=== PATIENT | female | born 1930 | race Caucasian/White ===

== ENCOUNTER 2018-09-19 18:15 | Inpatient (IN) | payer MEDICARE, BC ==
[~2018-09-19] VITALS: Ht 152.4 cm; Wt 89.6 kg
[~2018-09-19 18:15] MED LIST: BETIMOL0.5 % OU; BISOPRL/HCT1 PO; LASIX 40 MG40 MG/TAB PO; LISINOPRIL10 MG PO; XALATAN0.005 % OU; XARELTO20 MG PO
--- NOTE | 2018-09-19 18:15 | NUR ---
PT TO ROOM 9 VIA EMS FROM [facility]. PT LIVES AT HOME W/DAUGHTER,.
--- NOTE | 2018-09-19 18:30 | NUR ---
PT REMAINS STABLE, NEB TX IN PROGRESS, PT TOLERATES WELL. PLAN OF CARE DISCUSSED WITH PT AND FAMILY.
[2018-09-19 18:39] LABS: IMMATURE GRANULOCYTES 0.4 % (0.0-5.0); MEAN CELL VOLUME 88.8 fL CALC (80.0-100.0); MEAN CORPUSCULAR HGB 28.4 pG CALC (26.0-32.0); MEAN CORPUSCULAR HGB CONC 31.9 g/L CALC (32.0-36.0); NEUT# 3.4 thou/uL (2.00-7.15); RED BLOOD COUNT 5.29 mill/uL (4.20-5.60); RED CELL DISTRI WIDTH 14.3 % (11.5-15.5)
--- NOTE | 2018-09-19 18:45 | NUR ---
PT RESTING WITH FAMILY AT BEDSIDE, DENIES ANY CHANGE IN STATUS
--- NOTE | 2018-09-19 18:49 | NUR ---
URINE OBTAINED, SENT TO LAB.
[2018-09-19 18:53] LABS: ALBUMIN 4.2 g/dL (3.2-5.0); ALKALINE PHOSPHATASE 148 u/l (38-126); ANION GAP 13 (6-22 (CALC)); BILIRUBIN, TOTAL 1.1 mg/dL (0.0-1.4); BUN 10 mg/dL (8-23); BUN/CREATININE RATIO 17 (12-20 (CALC)); CARBON DIOXIDE 30 mmol/l (22-30); CHLORIDE 98 mmol/l (95-108); CREATININE 0.6 mg/dL (0.5-1.0); GFR > 60 ML/MIN (>=60 (CALC)); GFR FOR AFR.AMER. > 60 ML/MIN (>=60 (CALC)); POTASSIUM 3.9 mmol/l (3.5-5.1); SGOT/AST 32 u/l (9-36); SODIUM 137 mmol/l (137-146); TOTAL PROTEIN 7.9 g/dL (6.3-8.2)
[2018-09-19 19:06] LABS: MYOGLOBIN 36 ng/mL (0 - 62)
--- NOTE | 2018-09-19 19:15 | NUR ---
PT REMAINS ON WELT BEATER, PT IMPROVING. DENIES ANY NEEDS AT THIS TIME
--- NOTE | 2018-09-19 19:35 | NUR ---
MD AT BEDSIDE, PT REMAINS STABLE. DENIES ANY CHANGE IN STATUS
--- NOTE | 2018-09-19 20:00 | NUR ---
FAMILY AT BEDSIDE, PT REMAINS STABLE, DENIES ANY CHANGES IN STATUS
--- NOTE | 2018-09-19 20:16 | NUR ---
EXTERNAL FEMALE URINE CATH APPLIED.... PT CAN STAND BUT SHE IS SHORT AND WILL BE UNABLE TO GET BACK INTO THE BED.
--- NOTE | 2018-09-19 21:13 | NUR ---
REPORT TO GEOVANNY IBARRA, DENIES QUESTION UPON COMPLETION.
[2018-09-19 21:30] VITALS: BP 174/98
--- NOTE | 2018-09-19 21:30 | NUR ---
PT ARRIVED TO FLOOR VIA STRETCHER W/ED NURSE AND DAUGHTER ACCOMPANIED. PT APPEARS TO BE IN GOOD CONDITION AT THIS TIME. NO S/S OF DISTRESS. V/S ARE BEING ASSESSED, TELEMETRY PLACED AND PUREWICK REPLACED. POC DISCUSSED W/PT AND DAUGHTER.
--- NOTE | 2018-09-19 21:35 | NUR ---
PT TRANSFERED TO MED SURG, BEDSIDE REPORT TO GEOVANNY DELAROSA NURSING STAFF, FAMILY AT BEDSIDE. PT AND FAMILY THANKED ME FOR MY CARE UPON COMPLETION.
[2018-09-19 21:44] LABS: URINE BILIRUBIN - DIPSTICK NEGATIVE (NEGATIVE); URINE BLOOD DIPSTICK TRACE-LYSED (NEGATIVE); URINE COLOR YELLOW; URINE GLUCOSE - DIPSTICK NEGATIVE (NEGATIVE); URINE KETONE NEGATIVE (NEGATIVE); URINE LEUK ESTERASE NEGATIVE (NEGATIVE); URINE NITRITE - DIPSTICK NEGATIVE (Negative); URINE PROTEIN - DIPSTICK 30 mg/dL (NEG-TRACE); URINE SPECIFIC GRAVITY 1.015; URINE UROBILINOGEN - DIPSTICK 0.2 E.U./dL (0.2)
[2018-09-19 21:45] LABS: URINE CLARITY CLEAR; URINE RBC 0-2 RBC/hpf (0-5); URINE SQUAMOUS EPITHELIAL CELL FEW EPI/hpf (0-FEW); URINE WBC 0-2 WBC/hpf (0-5)
[2018-09-20] VITALS (13 sets, daily range): BP systolic 108–185; BP diastolic 60–100
--- NOTE | 2018-09-20 00:50 | NUR ---
PT CLEANED OF INCONTINENT URINE, ASSISTED TO BSC AND BACK TO BED. PT EXTREMELY WEAK AND FEARFUL DUE TO BLINDNESS WHILE AMBULATING TO BSC. PUREWICK APPLIED AND SUCTIONING AT THIS TIME. WILL CONTINUE TO MONITOR. PT DENIES ANY OTHER NEEDS. CALL LIGHT W/IN REACH AND PT ENCOURAGED TO CALL.
--- NOTE | 2018-09-20 02:15 | NUR ---
PT WAS MAKING LOUD MOANING NOISES SOUNDING IN PAIN, BUT APPEARED TO BE SLEEPING. UPON CHECKING PT, SHE DID ADMIT TO BEING ASLEEP AND DENIED ANY DISTRESS OR PAIN OF ANY KIND AND HAD A SMILE ON HER FACE. PT RETURNING TO SLEEP.
--- NOTE | 2018-09-20 08:30 | NUR ---
ASSESSMENT IS COMPLETED: IV SITE IS FREE FROM REDNESS OR EDMEA. HR IS REG,PULSES ARE STRONG X4, ABD IS SOFT WITH ACTIVE BS. BREATH SOUNDS ARE WHEEZING AND DIMINISHED. O2 @ 2LITERS WITH NC. TELE MONTIOR IN PLACE. CONTINUE TO OSBERVE AND MONITOR. PERIWICK IN PLACE DRAINING YELLOW URINE.
--- NOTE | 2018-09-20 12:06 | NUR ---
# 16 CITIZEN OF [place] RIBERA PLACED, AREA CLEANED WELL. STERILE TECHNIQUE USED. PT TOLERATED WELL., CLEAR YELLOW URINE COMING OUT IMMEDIATELY
[2018-09-20 12:19] LABS: URINE BILIRUBIN - DIPSTICK NEGATIVE (NEGATIVE); URINE BLOOD DIPSTICK TRACE-INTACT (NEGATIVE); URINE COLOR YELLOW; URINE GLUCOSE - DIPSTICK NEGATIVE (NEGATIVE); URINE KETONE NEGATIVE (NEGATIVE); URINE LEUK ESTERASE NEGATIVE (Negative); URINE NITRITE - DIPSTICK NEGATIVE (Negative); URINE PROTEIN - DIPSTICK NEGATIVE (NEG-TRACE); URINE SPECIFIC GRAVITY 1.015; URINE UROBILINOGEN - DIPSTICK 0.2 E.U./dL (0.2)
[2018-09-20 12:20] LABS: URINE CLARITY CLEAR
--- NOTE | 2018-09-20 12:20 | NUR ---
PT HAS BEEN RELAXING IN BED WITH NO DISTRESS NOTED. FAMILY HAS BEEN IN THE ROOM.
--- NOTE | 2018-09-20 13:59 | NUR ---
GAVE REPORT TO ERICA IBARRA, IN ICU. FAMILY IN THE ROOM. NOTIFIED OF THE TRANSFER AND REASON. PT IS "RAMBLING, PER DAUGHTER SHE SEEMS MORE CONFUSED. ". CONCERNED RE: THE CONFUSION WILL INFORM DR. HENSON./ PT BEING TRANSFERRED TO HAVE CT SCAN OF THE THORAX
--- NOTE | 2018-09-20 14:10 | NUR ---
PT TRANSFERRED T0 ICU BED [address] SCAN COMPLETE, PT ALERT BUT RAMBLES NON STOP TALKING ABOUT NOTHING IN PARTICULAR JUST MOVES FROM ONE SUBJECT TO ANOTHER, ANSWERS MOST QUESTIONS APPROPRIATELY, AWARE OF LOCATION, NAME, AND MONTH/YR, UNSURE OF EXACT DAY OF MONTH. LUNGS WITH WHEEZES THRU OUT AND CRACKLES NOTED IN BASES, O2 AT 2L VIA NC, WITH O2 SATS 95-96% PT HAS EXERTIONAL SOB PER REPORT, ABD SOFT AND BS HYPOACTIVE, DAUGHTER STATES NO BM IN 3 DAYS WHICH IS SLIGHTLY UNUSUAL FOR PATIENT, SOME EDEMA NOTED TO BILATERAL LE, SKIN IS ELEPHANT LIKE WITH PPPB, 16F RIBERA CATHETER INTACT WITH CLEAR YELLOW URINE NOTED AND CATHETER SECURITY DEVICE INTACT ON R UPPER THIGH, PT HAS 20G EMS SITE IN LEFT AC, SKIN WARM AND DRY WITH SMALL 0.3 X 0.3 X < 0.10cm OPEN AREA ON LEFT LOWER BUTTOCK, PT DENIES PAIN TO SITE AND UNABLE TO VERBALIZE HOW IT HAPPENED, NO DRNG OR S/S OF INFECION NOTED TO SITE. 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
--- NOTE | 2018-09-20 14:50 | NUR ---
PT RESTING DAUGHTER AT BEDSIDE, TALKING WITH PT REGARDING HER (DAUGHTER) GOING HOME AND TAKING CARE OF ANIMALS ETC.. CALL LUQUE WITHIN REACH.
--- NOTE | 2018-09-20 15:30 | NUR ---
DAUGHTER GONE AT THIS TIME, PT OFFERS NO COMPLAINTS, ASSISTED WITH WATER INTAKE, REINFORCED FLUID RESTRICTION. CALL REBEL MCGEE, WILL CONTINUE TO MONITOR.
--- NOTE | 2018-09-20 15:52 | NUR ---
O2 OFF AT THIS TIME, WILLMONITOR TOLERANCE, PT RESTING I N BED, WITH EYES CLOSED, NO S/S OF DISTRESS OR DISCMFORT NOTED, CALL LUQUE LUQUE WITHIN REACH.
--- NOTE | 2018-09-20 15:56 | NUR ---
WITHIN 4 MINS AT REST/DOZING NO EXERTION ON ROOM AIR O2 SATS 89-90%, O2 PLACED BACK ON PATIENT AT 2L VIA NC.
--- NOTE | 2018-09-20 15:57 | NUR ---
WITHIN 4 MINS AT REST/DOZING NO EXERTION ON ROOM AIR O2 SATS 89-90%
--- NOTE | 2018-09-20 16:29 | NUR ---
P.T. AT BEDSIDE PT DECLINED WORKING AT THIS TIME
--- NOTE | 2018-09-20 17:54 | NUR ---
SATS IMPROVED WITH RE APPLICATION OF O2 RESTING IN BED, TAKES PO MEDICATION W/O INCIDENT, DECLINED PM MEAL STATESD I USUALLY EAT LETER IN EVENING, MEAL LEFT AT BEDSIDE, PT INSTRUCTED TO CALL STAFF WHEN READY AND WE CAN REHEAT AND SET UP MEAL. CALL LUQUE WITHIN REACH
--- NOTE | 2018-09-20 18:08 | NUR ---
DIETARY AT BEDSIDE FOR MEAL CHOICES, STARCH CRAB AT BEDSIDE FOR ECHO ORDERED
--- NOTE | 2018-09-20 19:30 | NUR ---
PT RESTING IN BED AWAKE. PT IS ALERT AND ORIENTED X3 HOWEVER HAS PERIODS OF CONFUSION. SHIFT ASSESSMENT COMPLETED AT THIS TIME. IV PATENT X1. PLAN OF CARE REVIEWED WITH PT. PT DECIDED SHE DID NOT WANT HER DINNER TRAY. TRAY REMOVED AND LEFT LIQUIDS. DAUGHTER CALLED AND SPOKE TO THIS FITNESS SALES ASSOCIATE AND REQUESTED AN UPDATE. UPDATE PROVIDED. CALL LIGHT IN REACH. WILL CONTINUE TO MONITOR.
--- NOTE | 2018-09-20 20:47 | NUR ---
PT REFUSED RESTORIL. EXPLAINED THAT RESTORIL WAS FOR SLEEP AND THAT WITH THE STEROIDS SHE MAY WANT TO TAKE IT. PT BEGAN TALKING ABOUT TRUCKS AND TURKEYS. TRIED AGAIN TO EXPLAIN PT BECAME TEARFUL. EXPLAINED THAT DAUGHTER HAD CALLED TO CHECK ON PATIENT AND THAT HER DOG IS FINE IN THE ATEMPT TO CALM PATIENT. PATIENT CONTINUES TO BE TEARFUL, UNSURE OF WHY PATIENT IS TEARFUL EXPLAINED THAT IF SHE DID NOT WANT THE MEDICATION SHE DID NOT HAVE TO TAKE IT. PT THEN STATED MOUTH WAS DRY. OFFERRED WATER PT STATED THAT SHE IS ONLY ALLOWED SO MUCH PER DAY. EXPLINED THAT SHE IS WITHIN HER LIMIT OF FLUID RESTRICTION. PT STILL TEARFUL AND STATES THAT MOUTH IS DRY EXPLAINED THAT SHE SHOULD DRINK SOME WATER. PT PROVIDED WATER CUP IN HANDS WILL REASSESS POOR SLEEPING MEDICATION AT A LATER TIME. PT REQUESTED ALL 4 RAILS UP ON BED. RAILS X2 UP ON BED EXPLAINED THAT ALL 4 IS CONSIDERED A RESTRAINT. PT IS FEARFUL OF FALLING OUT OF BED EXPLAIEND THAT SHE IS IN THE MIDDLE OF THE BED AND SECURE. BED ALARM ON FOR PT SAFETY CALL LIGHT IN REACH. WILL CONTINUE TO MONITOR.
--- NOTE | 2018-09-20 22:00 | NUR ---
PT RESTING IN BED WITH EYES CLOSED. RESP ARE EVEN AND UNLABORED. NO DISTRESS NOTED. CALLLIGHT IN REACH. WILL CONTINUE TO MONITOR. BED ALARM ON FOR PT SAFETY
[2018-09-21] VITALS (19 sets, daily range): BP systolic 116–172; BP diastolic 61–98
--- NOTE | 2018-09-21 00:17 | NUR ---
PT RESTING IN BED AWAKE. PT CONTINUES TO SPEAK ABOUT VARIOUS ARRAY OF SUBJECTS UPON NURSE ENTERING ROOM.ENCOURAGED PT TO GET REST. CALL LIGHT IN REACH. WILL CONTINUE TO MONITOR. BED ALARM ON FOR SAFETY.
--- NOTE | 2018-09-21 01:59 | NUR ---
PT RESTING IN BED WITH EYES CLOSED. RESP ARE EVEN AND UNLABORED. NO DISTRESS NOTED. CALL LIGHT IN REACH. WILL CONTINUE TO MONITOR.
--- NOTE | 2018-09-21 03:23 | NUR ---
PT AWAKE IN BED. PT STATES THAT SHE HAS SLEPT OFF AND ON THROUGHOUT NIGHT. SHE CONTINUES TO JUMP FROM ONE SUBJECT TO ANOTHER. PT STATES THAT WHEN SHE WAS TAKEN SOMEWHERE ON DAY SHIFT SHE BECAME DIZZY. UNCLEAR OF WHAT PATIENT IS TALKING ABOUT. PT STATES THAT WHEN SHE IS FEELING BETTER SHE WILL BE COMPLIANT WITH MEDS AGAIN UNCLEAR OF PATIENTS STATEMENTS. CALL LIGHT IN REACH. BED ALARM ON FOR PT SAFETY. WILL CONTINUE TO MONITOR.
--- NOTE | 2018-09-21 04:53 | NUR ---
SENIOR JAVA DEVELOPER INTO ROOM TO DRAW AM LABS
[2018-09-21 05:07] LABS: HEMATOCRIT 50.7 % (37.0-47.0); HEMOGLOBIN 16.6 g/dl (12.0-16.0); IMMATURE GRANULOCYTES 0.4 % (0.0-5.0); MEAN CORPUSCULAR HGB 28.5 pG CALC (26.0-32.0); MEAN CORPUSCULAR HGB CONC 32.7 g/L CALC (32.0-36.0); NEUT# 10.07 thou/uL (2.00-7.15); RED BLOOD COUNT 5.83 mill/uL (4.20-5.60); RED CELL DISTRI WIDTH 14.2 % (11.5-15.5)
[2018-09-21 05:41] LABS: ALKALINE PHOSPHATASE 140 u/l (38-126); BILIRUBIN, TOTAL 0.8 mg/dL (0.0-1.4); BUN 16 mg/dL (8-23); BUN/CREATININE RATIO 23 (12-20 (CALC)); CHLORIDE 89 mmol/l (95-108); CREATININE 0.7 mg/dL (0.5-1.0); GFR > 60 ML/MIN (>=60 (CALC)); GFR FOR AFR.AMER. > 60 ML/MIN (>=60 (CALC)); MAGNESIUM 1.9 mg/dL (1.6-2.3); POTASSIUM 3.2 mmol/l (3.5-5.1); SGOT/AST 32 u/l (9-36); SODIUM 140 mmol/l (137-146); TOTAL PROTEIN 7.4 g/dL (6.3-8.2)
[2018-09-21 05:47] LABS: ANION GAP 16 (6-22 (CALC)); CARBON DIOXIDE 38 mmol/l (22-30)
--- NOTE | 2018-09-21 05:53 | NUR ---
PT AWAKE IN BED. PT CONTINUES TO TALK ABOUT SUBJECTS THAT REALLY DON'T SEEM RELEVANT AND THEN WHEN QUESTIONED SHE ATTEMPTS TO REDIRECT CONVERSATION A DIFFERENT DIRECTION. SHE ASKED THIS FIELD PROJECT MANAGER IF I FELT BETTER. I EXPLAINED THAT SHE IS THE ONE IN THE HOSPITAL IS SHE FEELING BETTER. SHE STATES SHE DOES NOT KNOW SHE IS SCARED OF FALLING ON THE FLOOR. AGAIN REASSURED PT THAT SHE IS SAFELY IN THE BED. CALL LIGHT IN REACH. WILL CONTINUE TO MONITOR.
--- NOTE | 2018-09-21 07:30 | NUR ---
PT RESTING IN BED AWAKE, PT ALERT BUT RAMBLES NON STOP TALKING ABOUT NOTHING IN PARTICULAR JUST MOVES FROM ONE SUBJECT TO ANOTHER, ANSWERS MOST QUESTIONS APPROPRIATELY, AWARE OF LOCATION, NAME, AND MONTH/YR, UNSURE OF EXACT DAY OF MONTH. LUNGS WITH EXPIRATORY WHEEZES AND DIMINSHED BASES, O2 AT 2L VIA NC, WITH O2 SATS 95-96%; ABD SOFT AND BS HYPOACTIVE, DAUGHTER STATES NO BM IN 3 DAYS WHICH IS SLIGHTLY UNUSUAL FOR PATIENT WILL PROVIDE PRUNE JUICE AND COFFEE WITH AM MEAL (PT USES THIS REGIMEN AT HOME WITH SUCCESS); NO EDEMA NOTED THIS AM; COPIUS OUTPUT SINCE BUMEX GTT INITIATED YESTERDAY; 16F RIBERA CATHETER REMAINS INTACT WITH CLEAR YELLOW URINE NOTED AND CATHETER SECURITY DEVICE INTACT ON R UPPER THIGH; SKIN WARM AND DRY WITH SMALL UNCHANGED 0.3 X 0.3 X < 0.10cm OPEN AREA ON LEFT LOWER BUTTOCK, PT VERBALIZES UNDERSTANDING, TELE READING A-FIB RATE IN THE 90-110'S, CALL LUQUE WITHIN REACH AND EASILY VISIBLE FROM NURSES STATION FOR SAFETY. WILL CONTINUE TO MONITOR.
--- NOTE | 2018-09-21 08:00 | NUR ---
SET UP ASSIST PROVIDED FOR AM MEAL, CALL LUQUE WITHIN REACH, PRUNE JUICE AND COFFEE PROVIDED
--- NOTE | 2018-09-21 09:01 | NUR ---
DAUGHTER AT BEDSIDE, PT DENIES PAIN OR DISCOMFORT, CALL LUQUE WITHIN REACH
--- NOTE | 2018-09-21 10:13 | NUR ---
DAUGHTER REMAINS AT BEDSIDE, R.T. AT BEDSIDE FOR NEB TREATMENTS, PT CONTINUES TO REMAIN TALKATIVE AND RAMBLES ON AND ONMOVING FROM ONE RANDOM SUBJECT TO ANOTHER. CALL LUQUE WITHIN REACH
--- NOTE | 2018-09-21 11:19 | NUR ---
IN TO SEE PATIENT, PLAN OF CARE DISCUSSED
--- NOTE | 2018-09-21 12:00 | NUR ---
PER PT DAUGHTER, PT DECLINED LUNCH AT THIS TIME, DAUGHTER LEAVING TO GO EAT AND WILL RETURN LATER AND ATTEMPT TO GET PT TO EAT MEAL, CALL LUQUE WITHIN REACH, WILL CONTINUE TO MONITOR
--- NOTE | 2018-09-21 13:40 | NUR ---
PT CONTINUES TO RAMBLE INCESSANTLY MOVING FROM ONE SUBJECT TO ANOTHER, NOT EASILY REDIRECTED AND WHEN YOU TRY TO REDIRECT PT GETS UPSET AND STATES "WELL JUST GO ON THEN IF I AM BOTHERING YOU" PT EASILY CALMED BUT AGAIN GOES OFF ON LONG DISCUSSIONS ABOUT NOTHING RELEVANT TO THE TASK OR CONVERSATION AT HAND. DAUGHTER LEFT AT 1240 TO GET LUNCH AND PT IS GONING ON ABOUT HOW SHE WAS JUST DROPPED HERE TO AND HER FATHER WAS TAKEN TO MENTAL INSTITUTION IN [place] AND THEY COULDN'T SEE HIM FOR TWO WEEKS AND IT WAS ALL BECAUSE HE TOOK AN ANXIETY MEDICATION ETC... AGAIN ATTEMPTS TO REDIRECT NOT ACCOMPLISHED. CALL LUQUE WITHIN REACH, WILL CONTINUE TO MONITOR.
--- NOTE | 2018-09-21 15:15 | NUR ---
GAGAN FROM THERAPY AT BEDSIDE AND WORKED WITH PATIENT, OOB IN CHAIR AT BEDSIDE AND CURRENTLY VISITORS AT BEDSIDE TALKING WITH PATIENT, CALL LUQUE WITHIN REACH, AND REMAINS EASILY VISIBLE FROM NURSES STATION, WILL CONTINUE TO MONITOR,.
--- NOTE | 2018-09-21 16:37 | NUR ---
P.T. at bedside to work with pt and put her back to bed, call guy within reach
--- NOTE | 2018-09-21 18:09 | NUR ---
PT DOZING, NO S/S OF DISTRESS, CALL LUQUE WITHIN REACH, REFUSED PM MEAL, RIBERA CATH REMAINS INTACT, WILL CONTINUE TO MONITOR.
--- NOTE | 2018-09-21 19:00 | NUR ---
PT RESTING IN BED WITH EYES CLOSED. AROUSES TO VERBAL STIMULI. PT IS ALERT AND ORIENTED X3. SHIFT ASSESSMENT COMPLETED AT THIS TIME. IV PATENT X1. CALL LIGHT IN REACH. WILL CONTINUE TO MONITOR.
--- NOTE | 2018-09-21 20:56 | NUR ---
pt medicated with hs meds. upon pt waking pt stated she did not know where she was at however when asked her name she knew immeadiately then knew immeadiately then knew she was at the hospital immeadiately. call light in reach. will continue to monitor.
--- NOTE | 2018-09-21 21:47 | NUR ---
PT O2 SATS DOWN TO 82%. NOTIFIED RT. RT INTO ROOM TO ASSESS. PT RESTING WITH EYES CLOSED AND SNORING. PT AWAKEN A BIT TO SEE IF THAT WAS THE REASON. O2 SAT UP TO 92%. O2 NC DROPPED TO 1L DUE TO ELEVATED CO2. CALL LIGHT IN REACH. WILL CON TINUE TO MONITOR.
--- NOTE | 2018-09-21 22:15 | NUR ---
RT INTO COMPLETE ABG
--- NOTE | 2018-09-21 22:27 | NUR ---
PHONED DR GEE TO NOTIFY OF ABG RESULTS. NEW ORDERS RECEIVED.
--- NOTE | 2018-09-21 22:30 | NUR ---
RT INTO ROOM TO PLACE PT ON BIPAP
--- NOTE | 2018-09-21 22:49 | NUR ---
TRIED TO CALL BUDDY DAUGHTER TO NOTIFY THAT PT WAS PLACED ON BIPAP. MESSAGE LEFT.
--- NOTE | 2018-09-21 23:17 | NUR ---
PT PLACED ON BED BANKS FOR BM. PT NOW AWAKE AND RAMBLING. EXPLAINED TO PT THAT SHE NEEDED TO RELAX THE BIPAP IS WORKING TO HELP HER OXYGEN LEVEL. PT CONTINUES TO RAMBLE SO I AGAIN EXPLAINED THAT SHE NEEDS TO ALLOW THE OXYGEN TO WORK. CALL LIGHT IN REACH. WILL CONTINUE TO MONITOR.
--- NOTE | 2018-09-21 23:26 | NUR ---
PT REMOVED FROM BED BANKS. NO BM NOTED. CALL LIGHT IN REACH. WILL COTNINUE TO DANIELA.
--- NOTE | 2018-09-21 23:33 | NUR ---
PT YELLING OUT FROM ROOM. THIS INSTRUCTION ASSISTANT PRINCIPAL INTO ROOM. PT STATES THAT HER ARM IS BURNING. EXPLAINED AGAIN THAT MEDICATION IS INFUSING AND IT WILL BURN. RATE SLOWED TO 25ML/HR. IV SITE FEE OF REDNESS/WARMTH. ENCOURAGED PT TO REST. CALL LIGHT IN REACH. WILL CONTINUE TO MONITOR.
--- NOTE | 2018-09-21 23:36 | NUR ---
DR GEE CALLED AND REQUESTED UPDATE ON PATIENT. UPDATE PROVIDED. NEW ORDERS RECEIVED.
--- NOTE | 2018-09-21 23:50 | NUR ---
RT INTO COMPLETE ABG PER MD ORDERS.
[2018-09-22] VITALS (15 sets, daily range): BP systolic 91–160; BP diastolic 49–84
--- NOTE | 2018-09-22 00:10 | NUR ---
DR GEE NOTIFIED OF REPEAT ABG. NO NEW ORDERS AT THIS TIME. WILL CONTINUE TO MONITOR.
--- NOTE | 2018-09-22 01:54 | NUR ---
PT RESTING IN BED WITH EYES CLOSED. RESP ARE EVEN AND UNLABORED. BIPAP REMAINS IN PLACE. NO DISTRESS NOTED. CALL LIGHT IN REACH. WILL CONTINUE TO MONITOR.
--- NOTE | 2018-09-22 04:11 | NUR ---
PT RESTING IN BED WITH EYES CLOSED. RESP ARE EVEN AND UNLABORED. NO DISTRESS NOTED. CALL LIGHT IN REACH. WILL CONTINUE TO MONIOTR.
--- NOTE | 2018-09-22 05:04 | NUR ---
ELECTROLYSIS NEEDLE OPERATOR INTO ROOM TO DRAW AM LABS.
--- NOTE | 2018-09-22 05:10 | NUR ---
RT INTO ROOM FOR NEB TREATMENT.
[2018-09-22 05:19] LABS: HEMATOCRIT 51.1 % (37.0-47.0); HEMOGLOBIN 16.4 g/dl (12.0-16.0); IMMATURE GRANULOCYTES 0.4 % (0.0-5.0); MEAN CELL VOLUME 88.7 fL CALC (80.0-100.0); MEAN CORPUSCULAR HGB 28.5 pG CALC (26.0-32.0); MEAN CORPUSCULAR HGB CONC 32.1 g/L CALC (32.0-36.0); NEUT# 7.56 thou/uL (2.00-7.15); RED BLOOD COUNT 5.76 mill/uL (4.20-5.60); RED CELL DISTRI WIDTH 14.3 % (11.5-15.5)
[2018-09-22 05:36] LABS: ALBUMIN 3.5 g/dL (3.2-5.0); ALKALINE PHOSPHATASE 111 u/l (38-126); BILIRUBIN, TOTAL 0.8 mg/dL (0.0-1.4); BUN 31 mg/dL (8-23); BUN/CREATININE RATIO 43 (12-20 (CALC)); CHLORIDE 91 mmol/l (95-108); CREATININE 0.7 mg/dL (0.5-1.0); GFR > 60 ML/MIN (>=60 (CALC)); GFR FOR AFR.AMER. > 60 ML/MIN (>=60 (CALC)); POTASSIUM 3.7 mmol/l (3.5-5.1); SGOT/AST 37 u/l (9-36); SODIUM 140 mmol/l (137-146); TOTAL PROTEIN 6.5 g/dL (6.3-8.2)
[2018-09-22 05:42] LABS: ANION GAP 14 (6-22 (CALC)); CARBON DIOXIDE 39 mmol/l (22-30)
--- NOTE | 2018-09-22 06:15 | NUR ---
PT AWAKE IN BED WITH BIPAP IN PLACE. PT HAD QUESTIONS ABOUT URINE AND BIPAP. EXPLAINED ONCE AGAIN THAT THE FOLRY IS DRAINING HER URINE. PT STATES THAT SHE IS HOLDING HER GAS. EXPLAINED IF SHE HAS GAS SHE CAN EXPELL IT. PT THEN STATES THAT IF SHE GOT UP SHE COULD. EXPLAINED THAT SHE CANNOT GET UP AT THIS TIME DUE TO BIPAP IN PLACE. PT THEN STATES THAT SHE IS NOT WANTING TO GET UP THEN EXPLAINED THAT IS WHAT SHE JUST STATED. PT THEN TOLD THIS PMP PROJECT MANAGER TO JUST SHUT UP. EXPLAINED THAT IT IS NOT AN APPROPRIATE WAY TO SPEAK AND SHE ASKED QUESTIONS. PT WANTS TO BECOME TEARFUL AND TALK ABOUT THE BIPAP MASK SAYING THAT IT IS LETTING OUT AIR AT THE BOTOTM EXPLAINED THAT THE SEAL IS ADEQUATE AND THE MACHINE IS NOT ALARMING AND HER O2 LEVEL IS MUCH IMPROVED. PT STATES THAT WE ARE JUST GOING TO LET HER . EXPLAINED THAT SHE SAID THAT ON DAY SHIFT YESTERDAY AND IS NOW SAYING IT AGAIN AND SHE IS RECEIVING THE BEST CARE. PT THEN BACK TO BM AND GAS. EXPLAINED IT IS OK TO EXPEL GAS AND IF SHE NEEDED TO HAVE A BM WE WOULD BE HAPPY TO PLACE HER ON BED BANKS. PT THEN STATES WELL IF I GO I WILL JUST LET IT GO ALL IN BED. THIS PMP PROJECT MANAGER STATED OK WE WILL BE HAPPY TO CHANGE THE LINENS. CALL LIGHT IN REACH. WILL CONTINUE TO MONITOR.
--- NOTE | 2018-09-22 08:04 | NUR ---
PT SEEN AWAKE, ALERT, SLIGHTLY CONFUSED. PT ON BIPAP, WHICH HAS BEEN REPLACED WITH NC AT 4 LPM FOR BREAKFAST. TRAY SET UP FOR HER, EATING NOW. NO DISTRESS NOTED.
--- NOTE | 2018-09-22 12:19 | NUR ---
PT OOB INTO CHAIR, MODERATE ASSIST TO GET THERE. PT DOES BECOME WHEEZY WITH MINIMAL ACTIVITY. DAUGHTER AND ANOTHER FEMALE AT BEDSIDE, PROVIDE SOURCE OF COMPANY AND CONVERSATION. NO ACUTE DISTRESS.
--- NOTE | 2018-09-22 16:10 | NUR ---
PT HAS BEEN SEEN BY VISITORS ALL AFTERNOON. PT REMAINS IN THE CHAIR NEXT TO THE BED, NO COMPLAINTS OR DISTRESS. PT SEEN BY DR GEE AND SHELL TORRES.
--- NOTE | 2018-09-22 17:28 | NUR ---
LINEN CHANGED, DINNER ARRIVES. PT PROVIDED MIRALAX ORDERED, EARLIER MILK OF MAGNESIUM GIVEN WITHOUT RESULTS.
--- NOTE | 2018-09-22 18:10 | NUR ---
PT ASSISTED BACK INTO BED, SEEN SHORT OF BREATH WITH MINIMAL EXERTION.
--- NOTE | 2018-09-22 20:00 | NUR ---
PT IN BED A/O X3 VERY TALKATIVE, RESPIRATIONS EVEN AND UNLABORED, HAS TO CATCH HER BREATH DUE TO TALKING. VOICES CONCERNS REGARDING WHAT TO DO INCASE OF BM, REASSURED PT STAFF CAN HELP OOB WHEN READY. OOB AT THIS TIME WITH ONE PERSON ASSISTANCE USING WALKERS, SLOW, WEAK AND UNSTEADY GAIT, PASSING FLATUS ONLY, SAT ON BSC FOR APROX 15MINS, THEN BACK TO BED, BS ACTIVE. CALL LIGHT IN REACH, PO FLUIDS AT BED SIDE. HEART MONITOR READING AFIB 100'S. WILL CONTINUE TO MONITOR.
--- NOTE | 2018-09-22 22:10 | NUR ---
RESTING WITH EYES CLOSED, RESPIRATIONS EVEN AND UNLABORED ON O2 @2L VIA NC, O2 SAT 93%, CALL LIGHT IN REACH. WILL CONTINUE TO MONITOR.
[2018-09-23] VITALS (13 sets, daily range): BP systolic 102–202; BP diastolic 52–116
--- NOTE | 2018-09-23 | NUR ---
RESTING WITH EYES CLOSED RESPIRAITONS EVEN AND UNLABORED ON O2 @2L VIA NC, O2 SAT 92%, HEART MONITOR READING AFIB 70'S. CALL LIGHT IN REACH.
--- NOTE | 2018-09-23 03:30 | NUR ---
PT CONTINUES TO REST WITH EYES CLOSED, RESPIRATIONS EVEN AND UNLABORED ON O2 @2L VIA NC, HEART MONITOR AFIB/FLUTTER 78. CALL LIGHT IN REACH.
--- NOTE | 2018-09-23 05:13 | NUR ---
PT WAKES EASILY, VERY TALKATIVE, MORNING BLOOD WORK DRAWN BY ROUTER SETTER AT THIS ITME, TOLERATED WELL.
[2018-09-23 05:19] LABS: HEMATOCRIT 52.3 % (37.0-47.0); MEAN CELL VOLUME 89.4 fL CALC (80.0-100.0); MEAN CORPUSCULAR HGB 29.1 pG CALC (26.0-32.0); MEAN CORPUSCULAR HGB CONC 32.5 g/L CALC (32.0-36.0); RED BLOOD COUNT 5.85 mill/uL (4.20-5.60); RED CELL DISTRI WIDTH 14.2 % (11.5-15.5)
--- NOTE | 2018-09-23 05:36 | NUR ---
B/P 167/102, HR 90'S, LISINOPRIL 10MG SCHEDULED FOR 9AM GIVEN AT THIS TIME.
[2018-09-23 05:45] LABS: BUN 32 mg/dL (8-23); BUN/CREATININE RATIO 54 (12-20 (CALC)); CHLORIDE 95 mmol/l (95-108); CREATININE 0.6 mg/dL (0.5-1.0); GFR > 60 ML/MIN (>=60 (CALC)); GFR FOR AFR.AMER. > 60 ML/MIN (>=60 (CALC)); POTASSIUM 3.9 mmol/l (3.5-5.1); SODIUM 141 mmol/l (137-146)
[2018-09-23 05:52] LABS: ANION GAP 11 (6-22 (CALC)); CARBON DIOXIDE 39 mmol/l (22-30)
--- NOTE | 2018-09-23 07:43 | NUR ---
PT RESTING IN BED, NO SIGNS OF DISTRESS NOTED, RESP EVEN AND UNLABORED. 02 2L NC,02 96%. LUNG SOUNDS COURSE WITH WHEEZES, AUTOMOTIVE COLLISION REPAIR INSTRUCTOR COUGH, ALERT AND ORIENTED X3, DISCUSSED POC. RIBERA DRAINING TO GRAVITY, STAT LOCK TO LLE. PT HAS MILD REDNESS TO ABD FOLDS AND UNDER BREASTS. PT STATES SHE HAS NOT HAD A BM, ABD SOUNDS ACTIVE X4, OFFERED PRUNE JUICE PT DECLINED OFFER. PT STATES SHE DOES NOT FEEL LIKE EATING AT THIS TIME WANTS TO SLEEP. INSTRUCTED PT TO CALL WHEN SHE IS READY TO GET UP TO CHAIR FOR BREAKFAST, VERBALIZED UNDERSTANDING. CALL LIGHT IN REACH,CONTINUE TO MONITOR.
--- NOTE | 2018-09-23 08:52 | NUR ---
PT CALLED AND REQUESTED TO SIT ON COMMODE TO ATTEMPT TO HAVE BM, NO BM AT THIS TIME. SITTING IN CHAIR EATING BREAKFAST, COFFEE PROVIDED PER REQUEST, STATES IT WILL HELP HER HAVE A BM. CALL LIGHT IN REACH,CONTINUE TO MONITOR.
--- NOTE | 2018-09-23 09:11 | NUR ---
DAUGHTER AT BEDSIDE, NO SIGNS OF DISTRESS NOTED, PT VOICES NO NEEDS OR COMPLAINTS AT THIS TIME. CALL LIGHT IN REACH,CONTINUE TO MONITOR.
--- NOTE | 2018-09-23 09:50 | NUR ---
RT AT BEDSIDE FOR NEB TX, PT VOICES NO NEEDS OR COMPLAINTS AT THIS TIME. CALL LIGHT IN REACH,CONTINUE TO MONITOR.
--- NOTE | 2018-09-23 10:56 | NUR ---
PT STILL SITTING ON BSC, MEDICATED WITH MOM AND MIRALAX. BP AT THIS TIME 202/116 MAINFRAME ARCHITECT NOTIFIED. ORDERS ENTERED. NO SIGNS OF DISTRESS NOTED, RESP EVEN AND UNLABORED. PT VOICES NO NEEDS OR COMPLAINTS AT THIS TIME. RN TO MEDICATE.
--- NOTE | 2018-09-23 11:24 | NUR ---
RECHECKED BP 165/88. STRUCTURAL DRAFTER NOTIFIED. DAUGHTER RETURNED TO BEDSIDE. OFFERED PT HER LUNCH TRAY, PT STATES,"I JUST HAD BREAKFAST." PT WORRIED SHE IS FILLING UP WITH STOOL. PT IS STILL SITTING ON BSC, DOING EXCERSIZES AND SHAKING HER BELLY. CALL LIGHT IN REACH,CONTINUE TO MONITOR.
--- NOTE | 2018-09-23 12:43 | NUR ---
DAUGHTER AT BEDSIDE, PT IS TEARFUL TELLING HER DAUGHTER THAT SHE'S LIVED A GOOD LIFE AND SHE LOVES HER. PT ASKING FOR FAMILY MEMBERS TO FORGIVE HER AND SHE DOES NOT WANT TO BECAUSE SHE STILL HAS THINGS SHE WANTS TO DO. CALL LIGHT IN REACH,CONTINUE TO MONITOR.
--- NOTE | 2018-09-23 12:51 | NUR ---
GLYCERIN SUPPOSITORY INSERTED RECTALLY, PT TOLERATED WELL. ENCOURAGED TO HOLD SUPPOSITOY IN LONG SHE CAN, PT VERBALIZED UNDERSTANDING. CALL LIGHT IN REACH,CONTINUE TO MONITOR.
--- NOTE | 2018-09-23 14:00 | NUR ---
PT TAKEN TO MS2 VIA WHEELCHAIR TO SHOWER, PT TOLERATED WELL. PT STATES HER APPRECIATION. RETURNED TO ICU BED 6, NEW LEG STRAP APPLIED, STOOL THAT PT HAD SENT TO LAB. [place]STATIN POWDER APPLIED, DUODERM APPLIED TO AREA ON BUTTOCK. AND LABELING SPECIALIST TO BEDSIDE. REPOSITIONED PT BACK IN BED, CALL LIGHT IN REACH,CONTINUE TO MONITOR.
[2018-09-23 16:25] LABS: C. DIFFICILE TOXIN A&B NEGATIVE (NEGATIVE)
--- NOTE | 2018-09-23 16:49 | NUR ---
DAUGHTER AT BEDSIDE, PT WANTS TO BE A DNR. DISCUSSED WITH BOTH PT AND DAUGHTER WHAT THAT ENTAILS PT ADAMANT THAT SHE WANTS TO BE A DNR. STATES THAT IF SHE IS ON HER WAY TO BE WITH GOD SHE DOES NOT WANT TO BE BROUGHT BACK HERE, SHE WANTS TO BE WITH GOD. HOUSEKEEPING CLEANER NOTIFIED, TO BE DISCUSSED AND SIGNED TOMORROW. PT WORRIED STATES,"WHAT IF I DON'T MAKE IT UNTIL TOMORROW?" DAUGHTER PROVIDING COMFORT INFORMED PT,"I THINK YOU CAN MAKE IT UNTIL TOMORROW." DAUGHTER STATES PT HAS BEEN IN THIS STATE SINCE YESTERDAY, SHE IS PUTTING "HER DUCKS IN A ROW" MAKING AMMENDS WITH FAMILY MEMBERS, FILING THE PROPER PAPERWORK. WILL NOTIFY CASE MANAGEMENT WELL, DAUGHTER STATES SHE WOULD LIKE TO BE POA OF PT, BOTH IN AGREEMENT. RIBERA EMPTYIED OF 1200CC OF CLEAR YELLOW URINE.NO SIGNS OF DISTRESS NOTED, RESP EVEN AND UNLABORED. CALL LIGHT IN REACH,CONTINUE TO MONITOR.
--- NOTE | 2018-09-23 17:18 | NUR ---
PT STATES TO NOT BRING HER, HER DINNER TRAY, PT STATES SHE DOES NOT WANT IT. SHE PREFERS A LITE JELLO OR JUST JUICES. DIETARY NOTIFIED. DAUGHTER LEFT FOR THE EVENING. PT RESTING COMFORTABLY IN BED, CALL LIGHT IN REACH,CONTINUE TO MONITOR.
--- NOTE | 2018-09-23 17:34 | NUR ---
ENTERED ROOM WITH JUICES, PT AGAIN REQUESTS TO BE A DNR, DISCUSSED WITH ANGLE BENDER. PT OF SOUND AND MIND AND CAN SIGN FOR HERSELF. PT IS VISUALLY IMPAIRED, DNR SIGNED BY PT STATES SHE IS "HAPPY NOW". DNR BRACELET APPLIED. PT VOICES NO NEEDS OR COMPLAINTS AT THIS TIME. CALL LIGHT IN REACH,CONTINUE TO MONITOR.
--- NOTE | 2018-09-23 18:38 | NUR ---
PT RESTING IN BED WITH EYES CLOSED, NO SIGNS OF DISTRESS NOTED, RESP EVEN AND UNLABORED. CALL LIGHT IN REACH,CONTINUE TO MONITOR.
--- NOTE | 2018-09-23 19:30 | NUR ---
PT RESTING IN BED WITH EYES CLOSED RESPIRATIONS EVEN AND UNLABORED ON O2 @2L VIA NC, HEART MONITOR READING AFIB 90'S-100'S. CALL LIGHT IN REACH.
--- NOTE | 2018-09-23 20:30 | NUR ---
RESPONDS EASILY TO VERBAL COMMAND, A/O X3, AUDIBLE WHEEZING NOTED. DENIES PAIN OR DISCOMFORT. PM MED PROVIDED AT THIS TIME. RIBERA CATHETER DRAINING CLEAR YELLOW URINE. ADMITS TO PASSING FLATUS NO BM AT THIS TIME, OFFERED ASSISTANCE OOB TO BSC, PT REFUSES AT THIS TIME, PO FLUIDS IN REACH. WILL CONTINUE TO MONITOR.
--- NOTE | 2018-09-23 22:30 | NUR ---
RESTING WITH EYES CLOSED, RESPIRATIONS EVEN AND UNLABORED ON O2 @2L VIA NC, 02 SAT 92%. HEART MONITOR READING AFIB 80'S TO 90'S. CALL LIGHT IN REACH.
[2018-09-24] VITALS (8 sets, daily range): BP systolic 101–158; BP diastolic 56–85
--- NOTE | 2018-09-24 00:30 | NUR ---
REPOSITIONED TO RIGHT SIDE, PT ABLE TO TO ASSIST WITH TURNING. OFFERS NO CONCERNS, RESPIRATIONS EVEN AND UNLABORED ON O2@2L VIA NC, O2 SAT 96%. HEART MONITOR READING AFIB/FLUTTER 90'S. CALL LIGHT IN REACH.
--- NOTE | 2018-09-24 02:30 | NUR ---
RESTING WITH EYES CLOSED, TALKING IN HER SLEEP, CALL LIGHT IN REACH.
--- NOTE | 2018-09-24 04:20 | NUR ---
RESTING WITH EYES CLOSED, RESPIRATIONS EVEN AND UNLABORED, O2 @2L VIA NC, O2 SAT 93%. HEART MONITOR READING AFIB 90'S. CALL LIGHT IN REACH.
--- NOTE | 2018-09-24 05:05 | NUR ---
MORNING LABS DRAWN BY ROOFER HELPER, TOLERATED WELL. OOB TO BSC PER PT REQUEST, ATTEMPTING TO HAVE BM, PASSING FLATUS AT THIS TIME. CALL LIGHT IN REACH. OXYGEN AT BED SIDE, O2 SAT 91% ON RA. HEART MONITOR READING AFIB 120'S.
[2018-09-24 05:20] LABS: HEMATOCRIT 54.4 % (37.0-47.0); HEMOGLOBIN 17.4 g/dl (12.0-16.0); IMMATURE GRANULOCYTES 0.3 % (0.0-5.0); MEAN CORPUSCULAR HGB 28.2 pG CALC (26.0-32.0); NEUT# 9.92 thou/uL (2.00-7.15); RED BLOOD COUNT 6.18 mill/uL (4.20-5.60); RED CELL DISTRI WIDTH 14.3 % (11.5-15.5)
[2018-09-24 05:36] LABS: BUN 32 mg/dL (8-23); BUN/CREATININE RATIO 56 (12-20 (CALC)); CHLORIDE 92 mmol/l (95-108); CREATININE 0.6 mg/dL (0.5-1.0); GFR > 60 ML/MIN (>=60 (CALC)); GFR FOR AFR.AMER. > 60 ML/MIN (>=60 (CALC)); SODIUM 138 mmol/l (137-146)
[2018-09-24 05:41] LABS: ANION GAP 10 (6-22 (CALC))
[2018-09-24 05:58] LABS: CARBON DIOXIDE 40 mmol/l (22-30)
--- NOTE | 2018-09-24 06:22 | NUR ---
ASSISTED OUT OF BSC, STANDING AND THEN REQUESTING TO SIT BACK DOWN TO BSC, CALL LIGHT IN REACH, FRESH WATER AND COFFEE AT BED SIDE.
--- NOTE | 2018-09-24 07:36 | NUR ---
PT SEEN OOB ON COMMODE. PT HAS DIFFICULTY WITH NORMAL BMs, HAS REGIMEN THAT SHE FOLLOWS TO HAVE ADEQUATE EVACUATION. NO DISTRESS NOTED. PT REMAINS IN AFIB, HR 80-120.
--- NOTE | 2018-09-24 08:57 | NUR ---
PT WAS SEEN FOR FA AND TX. SHE WAS SEEN SITTING IN THE BSC WHILE FINISHING UP HER BREAKFAST. SHE AGREED TO DO HER EXERCISES AND WAS VERY COOPERATIVE. SHE WAS PROVIDED WITH MIN A ON SIT TO STAND. SHE STOOD UP FOR ~3 MINS. WHILE NRSNG CLEANED HER UP, REQUIRED MIN A. AND RW. PT THEN TOOK AT LEAST 5 STEPS WITH TURNING TO SIT ON EOB WITH CGA, RW AND VERBAL CUES. PT THEN PERFORMED LAQ ON B LE, SITTING MARCHES AND ANKLE RAISES AND [id number] X 5 REPS WITH CGA, RW AND VCS. PT THEN WALKED TO THE RECLINER WITH CGA, RW AND VC ON HAND PLACEMENT. PT WAS ABLE TO PERFORM TRANSFERS AND SHORT-DIST. AMB W/ RW AND CGA. SHE REQUIRES SUPERVISION ON TRANSFERS AND AMB FOR SAFETY. PT IS A GOOD CANDIDATE FOR IN-PT REHAB FOR CONDITIONING, GAIT AND BALANCE. BARRIERS: GEN. WEAKNESS, MOD-SEVERE BALANCE IMPAIRMENT, BAD RIVER BAND, LEGALLY BLIND AND POOR ENDURANCE SEEN BY SOB DURING ACTIVITIES. SPO2 HOWEVER REMAINED ON 90'S ON ROOM AIR ALTHROUGHOUT THE ACTIVITIES.
--- NOTE | 2018-09-24 09:31 | NUR ---
PT OOB INTO RECLINER AT THIS TIME. PT DID WELL WITH PHYSICAL THERAPIST. MODERATE BM THIS AM. DAUGHTER BUDDY AT BEDSIDE NOW.
--- NOTE | 2018-09-24 10:07 | NUR ---
PT SEEN BY CABLE INSTALLER REPAIRER WELL DR HENSON. DAUGHTER REMAINS AT BESIDE.
--- NOTE | 2018-09-24 16:24 | NUR ---
PT AWARE OF PENDING TRANSFER TO MED/SURG TONIGHT AT SHIFT CHANGE. PT ALSO AWARE OF OPEN BED AT [facility], PROBABLE TRANSFER TO THERE TOMORROW. DAUGHTER AWARE AND IN AGREEMENT. PT REMAINS AT REST IN THE BED, NO DISTRESS, VSS.
--- NOTE | 2018-09-24 19:00 | NUR ---
PT RESTING IN BED AWAKE. PT IS ALERT AND ORIENTED X3. SHIFT ASSESSMENT COMPLETED AT THIS TIME. IV PATENT X1. PLAN OF CARE REVIEWED AT THIS TIME. TRANSFER PROCESS REVIEWED. PT VERBALIZED UNDERSTANDING AND AGREED WITH TRANSFER. CALL LIGHT IN REACH. WILL CONTINUE TO MONITOR.
--- NOTE | 2018-09-24 19:27 | NUR ---
PHONED MS FLOOR TO [facility] AND PT WILL GO TO ROOM 270 WITH SUJATA THE ACCEPTING NURSE
--- NOTE | 2018-09-24 19:43 | NUR ---
PT TRANSFERRED TO MS ROOM 270 VIA WC. BEDSIDE REPORT GIVEN TO SUJATA IBARRA.
--- NOTE | 2018-09-24 19:56 | NUR ---
PT ARRIVED TO UNIT VIA WHEELCHAIR WITH ICU STAFF; ALERT AND ORIENTED AND IN STABLE CONDITION. ASSISTED TO BED X 2 PERSON ASSIST. DENIES PAIN ON ARRIVAL. RESPIRATIONS EVEN AND UNLABORED ON OXYGEN 2L VIA NC. ORIENTED TO NEW ROOM AND CALL LIGHT SYSTEM. PLAN OF CARE REVIEWED. PT ENCOURAGED TO VERBALIZE CONCERNS. STATES UNDERSTANDING. SAFETY MEASURES IN PLACE. CALL LIGHT WITHIN REACH.
--- NOTE | 2018-09-25 00:11 | NUR ---
PT ASLEEP AT THIS TIME WITH NO SIGNS OF DISTRESS; AWAKENED TO VERBAL STIMULI FOR VS. DENIES PAIN. RESPIRATIONS EVEN AND UNLABORED ON OXYGEN. IV SITE APPEARS HEALTHY AND FLUSHES. NYSTATIN POWDER APPLIED UNDER BREASTS AND ABDOMINAL FOLDS PER ORDER. PT IS ONE PERSON ASSIST TO BATHROOM. SAFETY MEASURES IN PLACE. CALL LIGHT WITHIN REACH.
[2018-09-25 00:24] VITALS: BP 142/86
--- NOTE | 2018-09-25 04:18 | NUR ---
NO ACUTE CHANGES IN CONDIIION THROUGHOUT THE NIGHT. ONE LARGE WATERY BOWEL MOVEMENT. PT IS NPO AT THIS TIME PENDING BADA CONSULT TODAY. CALL LIGHT WITHIN REACH.
[2018-09-25 05:05] VITALS: BP 145/79
--- NOTE | 2018-09-25 05:15 | NUR ---
RT AT BEDSIDE FOR BREATHING TREATMENT.
[2018-09-25 05:24] LABS: HEMATOCRIT 53.4 % (37.0-47.0); HEMOGLOBIN 17.3 g/dl (12.0-16.0); IMMATURE GRANULOCYTES 0.7 % (0.0-5.0); MEAN CELL VOLUME 87.1 fL CALC (80.0-100.0); MEAN CORPUSCULAR HGB 28.2 pG CALC (26.0-32.0); MEAN CORPUSCULAR HGB CONC 32.4 g/L CALC (32.0-36.0); NEUT# 11.17 thou/uL (2.00-7.15); RED BLOOD COUNT 6.13 mill/uL (4.20-5.60); RED CELL DISTRI WIDTH 14.1 % (11.5-15.5)
[2018-09-25 05:36] LABS: ALBUMIN 3.2 g/dL (3.2-5.0); ALKALINE PHOSPHATASE 105 u/l (38-126); ANION GAP 11 (6-22 (CALC)); BILIRUBIN, TOTAL 0.9 mg/dL (0.0-1.4); BUN 43 mg/dL (8-23); BUN/CREATININE RATIO 62 (12-20 (CALC)); CARBON DIOXIDE 39 mmol/l (22-30); CHLORIDE 89 mmol/l (95-108); CREATININE 0.7 mg/dL (0.5-1.0); GFR > 60 ML/MIN (>=60 (CALC)); GFR FOR AFR.AMER. > 60 ML/MIN (>=60 (CALC)); MAGNESIUM 2.5 mg/dL (1.6-2.3); SODIUM 135 mmol/l (137-146); TOTAL PROTEIN 6.1 g/dL (6.3-8.2)
[2018-09-25 05:38] LABS: SGOT/AST 75 u/l (9-36)
[2018-09-25 08:02] VITALS: BP 144/73
--- NOTE | 2018-09-25 08:04 | NUR ---
SHIFT CHANGE REPORT FROM SUJATA PT AWAKE AND ALERT RESTING IN BED, O2 @ 2L VIA NC IN PLACE, TELE MONITOR IN PLACE, RIBERA CATHETER IN PLACE WITH ANILA URINE, NO C/O DISCOMFORT, BED IN LOWEST POSITION AND CALL LUQUE IN REACH.
--- NOTE | 2018-09-25 09:32 | NUR ---
PATIENT UP IN CHAIR, STATING SHE IS WILLING TO GO TO REHAB, BUT IS CONCERNED THAT SHE MAY NOT GET TO GO HOME. PATIENT HAS 3WW AT HOME AND IT WAS BROUGHT IN FOR USE HERE, BY HER DAUGHTER. SHE HAS NEVER USED THE BRAKES, WHICH DO NOT LOCK. DISCUSSED POSSIBILITY OF HAVING NEW WALKER ORDERED FOR FUTURE USE. SIT TO STAND WITH CGA OF 2 AND ASSIST FOR HAND PLACEMENT. AMB 20 FEET TO BR FOR TOILETING. 3WW THEN UTILIZED TO RETURN TO RECLINER. CONSTANT CUING FOR HAND PLACEMENT AND SAFETY. PERFORMED MARÍA SITTING IN CHAIR FOR MARCHING, KNEE EXT AND ANKLE PUMPS. PATIENT STATES SHE IS BETTER ABLE TO LIFT HER LEGS TODAY. CALL LUQUE AND TRAY TABLE RETURNED. PATIENT WITH INCREASED HR INTO THE 170'S REPORTED BY NSG. O2 REPLACED WITH 97% O2 SATS AND IN NO APPARANT DISTRESS. DAUGHTER PRESENT.
[2018-09-25 11:33] VITALS: BP 127/76
--- NOTE | 2018-09-25 12:00 | NUR ---
SITTING UP IN RECLINER HAVING MEAL, DAUGHTER ASSISTING WITH FEED, ALL NEEDS ADDRESSED.
[2018-09-25] MEDS ORDERED: IPRATROPIU0.5 MG/3 M IN (13:56)
[2018-09-25] MEDS ORDERED: XARELTO10 MG PO (13:57)
[2018-09-25] MEDS ORDERED: CARVEDILOL3.125 MG PO (13:57)
[2018-09-25] MEDS ORDERED: RESTORIL15 MG PO (13:58)
[2018-09-25] MEDS ORDERED: BISACODYL10 M2 PR (13:58)
[2018-09-25] MEDS ORDERED: LISINOPRIL20 M1 PO (13:58)
[2018-09-25] MEDS ORDERED: GLYCOLAX3350 N1 PO (13:59)
[2018-09-25] MEDS ORDERED: NYSTOP100000 UNI TOP (13:59)
[2018-09-25] MEDS ORDERED: PANTOPRAZOLE SO40 M1 PO (13:59)
[2018-09-25] MEDS ORDERED: NOVOLOG100 UNIT/M SC (14:00)
[2018-09-25] MEDS ORDERED: BUMETANIDE2 MG IN (14:20)
--- NOTE | 2018-09-25 16:41 | NUR ---
Discharge instructions given. Patient verbalizes understanding of same. Discharged in stable condition via Wheelchair to [facility] with family. All belongings sent with pt.
== END 2018-09-25 16:40 | DRG 292 ==
LOC: ED 18:15 → ED-I 19:44 → ED 20:07 → MS2 20:08 → ICU 09-20 14:10 → MS2 09-24 19:43
PROVIDERS: Emergency Medicine; Internal Medicine; Nurse Practitioner Family; ADMIT Internal Medicine; ATTEND Internal Medicine Nephrology
PROC: 0T9B70Z Drainage of Bladder with Drainage Device, Via Natural or Artificial Opening (ICD-10-PCS; 2018-09-20)
PROC: 5A09357 Assistance with Respiratory Ventilation, Less than 24 Consecutive Hours, Continuous Positive Airway Pressure (ICD-10-PCS; 2018-09-21)
PROC: 3E0234Z Introduction of Serum, Toxoid and Vaccine into Muscle, Percutaneous Approach (ICD-10-PCS; principal; 2018-09-22)
DX: I11.0 Hypertensive heart disease with heart failure (principal); J44.1 Chronic obstructive pulmonary disease with (acute) exacerbation; E87.4 Mixed disorder of acid-base balance; Z68.41 Body mass index [BMI] 40.0-44.9, adult; I50.23 Acute on chronic systolic (congestive) heart failure; I48.2 Chronic atrial fibrillation; I16.0 Hypertensive urgency; E11.65 Type 2 diabetes mellitus with hyperglycemia; E11.21 Type 2 diabetes mellitus with diabetic nephropathy; E78.5 Hyperlipidemia, unspecified; B37.2 Candidiasis of skin and nail; L30.4 Erythema intertrigo; H35.30 Unspecified macular degeneration; H40.9 Unspecified glaucoma; E66.01 Morbid (severe) obesity due to excess calories; H54.8 Legal blindness, as defined in USA; K59.00 Constipation, unspecified; R53.81 Other malaise; I45.10 Unspecified right bundle-branch block; Z23 Encounter for immunization; Z79.01 Long term (current) use of anticoagulants
CPT/HCPCS: G0378